=== PATIENT | male | born 1930 | race Caucasian/White ===

== ENCOUNTER 2017-02-02 12:46 | Inpatient (IN) ==
[2017-02-02 17:48] LABS: MANUAL DIFF NEEDED? NO
[2017-02-02 17:54] LABS: ALLEN TEST YES; BE 2.6 mmoll (-3.0-3.0); BLOOD TYPE ARTERIAL; DRAW SITE L RADIAL; METHB 0.4 % (0.0-1.5); O2(CT) 13.5 mL/dL (15.0-23.0); PCO2(98.6) 35 mmHg (35-45); PO2(98.6) 62 mmHg (60-100); SAMPLE BLOOD; SAO2 94.3 % (95.0-100.0); THB 10.3 g/dL (11.5-17.4); pH(98.6) 7.48 (7.35-7.45)
[2017-02-02 17:55] LABS: BASO% 0.3 % (0.0-0.8); EOS# 0.13 X1000 (0.0-0.7); EOS% 1.1 % (0.0-10.0); HEMATOCRIT 31.6 % (42.0-52.0); IMM GRAN# 0.06 X1000 (0.0-0.04); IMM GRAN% 0.5 % (0.0-0.5); LYMPH# 0.91 X1000 (1.2-3.4); LYMPH% 7.8 % (20.5-51.1); MCHC 31.6 g/dL (33-37); MCV 104.3 FL (81-99); MONO# 0.93 X1000 (0.11-0.59); MPV 9.3 FL (7.4-10.4); NEUT% 82.3 % (42.2-75.2); PLT 331 X1000 (130-400); RBC 3.03 XMIL (4.7-6.1)
[2017-02-02 17:55] LABS: MODALITY ROOM AIR
[2017-02-02 18:12] LABS: AGAP 10; ALBUMIN 3.1 g/dL (3.5-5.0); ALKALINE PHOSPHATASE 82 U/L (32-122); BUN 18 mg/dL (8-22); CALCIUM 8.8 mg/dL (8.8-10.2); CHLORIDE 99 mmol/L (98-107); COSMO 270; GOT 17 U/L (10-34); GPT 12 U/L (10-44); POTASSIUM 4.2 mmol/L (3.5-5.1); SODIUM 134 mmol/L (136-145); TCO2 25 mmol/L (25-35); TOTAL BILIRUBIN 0.38 mg/dL (0.20-1.00); TOTAL PROTEIN 5.6 g/dL (6.3-8.3)
[2017-02-02 18:21] LABS: URINE CULTURE NEEDED? NO; URINE MICRO REVIEW NEEDED? NO; URINE SOURCE CLEAN CATCH
--- NOTE | 2017-02-02 18:33 | Diag Imaging Result Doc PS360 ---
EXAM: CHEST-2 VIEWS - 02/02/2017 HISTORY: Pneumonia; new right cavitary lesion TECHNIQUE: AP and lateral chest COMPARISON: Portable exam of 04/29/2016 FINDINGS: Heart size appears borderline enlarged. There is ill-defined infiltrate at right upper lobe. There is mild ill-defined infiltrate at the left base. There are apparent small bilateral pleural effusions which are most conspicuous on the lateral view. There is no pneumothorax identified. There are severe degenerative changes noted at the bilateral shoulders. IMPRESSION: Borderline cardiomegaly. Ill-defined infiltrates at right upper lobe and left base. Small pleural effusions. Electronically signed by Favian Leung 02/02/2017 6:31 PM
[2017-02-02 18:39] LABS: BILIRUBIN URINE NEGATIVE (NEGATIVE); BLOOD URINE NEGATIVE (NEGATIVE); COLOR YELLOW; GLUCOSE URINE NEGATIVE (NEGATIVE); LEUKOCYTES URINE NEGATIVE (NEGATIVE); NITRITE URINE NEGATIVE (NEGATIVE); PROTEIN URINE NEGATIVE (NEGATIVE); SP GRAVITY URINE 1.017; TURBIDITY URINE CLEAR (CLEAR); UR EPITHELIAL CELLS <10 /HPF (<10); URINE BACTERIA NEGATIVE /HPF; URINE RBC <10 /HPF (<10); URINE WBC <10 /HPF (<10); UROBILINOGEN URINE NORMAL (NORMAL)
[2017-02-02] MEDS: ATROVENT NEB INH SCH ×2 (19:35→23:00)
[2017-02-02] MEDS: XOPENEX NEB INH SCH ×2 (19:35→23:00)
[2017-02-02] MEDS: ROCEPHIN 1 GM in NS 50 ML IV SCH (20:04)
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
[2017-02-03] MEDS: XOPENEX NEB INH SCH ×6 (03:19→23:17)
[2017-02-03] MEDS: ATROVENT NEB INH SCH ×6 (03:19→23:17)
--- NOTE | 2017-02-03 05:22 | EKG Report ---
Test Performed on : 02/02/2017 5:28:28 PM Test Reason : evaluate rythm Blood Pressure : / mmHG Vent. Rate : 069 BPM Atrial Rate : 069 BPM P-R Int : 182 ms QRS Dur : 084 ms QT Int : 402 ms P-R-T Axes : 107 -08 034 degrees QTc Int : 430 ms Normal sinus rhythm. Normal ECG When compared with ECG of 28-APR-2016 06:52, No significant change was found Confirmed by Isak Vera MD ([id number]) on 02/03/2017 6:55:34 PM
[2017-02-03 06:53] LABS: MANUAL DIFF NEEDED? NO
[2017-02-03 07:09] LABS: BASO% 0.2 % (0.0-0.8); EOS% 0.8 % (0.0-10.0); HEMATOCRIT 31.1 % (42.0-52.0); IMM GRAN# 0.05 X1000 (0.0-0.04); IMM GRAN% 0.4 % (0.0-0.5); LYMPH# 0.95 X1000 (1.2-3.4); LYMPH% 7.9 % (20.5-51.1); MCH 33.2 PG (27-31); MCHC 32.2 g/dL (33-37); MCV 103.3 FL (81-99); MONO# 1.03 X1000 (0.11-0.59); MONO% 8.6 % (1.7-9.3); MPV 9.2 FL (7.4-10.4); NEUT% 82.1 % (42.2-75.2); PLT 337 X1000 (130-400); RBC 3.01 XMIL (4.7-6.1)
[2017-02-03 07:27] LABS: AGAP 10; ALBUMIN 3.1 g/dL (3.5-5.0); ALKALINE PHOSPHATASE 77 U/L (32-122); BUN 13 mg/dL (8-22); CALCIUM 8.6 mg/dL (8.8-10.2); CHLORIDE 101 mmol/L (98-107); COSMO 272; GOT 19 U/L (10-34); GPT 11 U/L (10-44); POTASSIUM 3.9 mmol/L (3.5-5.1); SODIUM 136 mmol/L (136-145); TCO2 25 mmol/L (25-35); TOTAL BILIRUBIN 0.41 mg/dL (0.20-1.00); TOTAL PROTEIN 5.6 g/dL (6.3-8.3)
[2017-02-03 10:28] LABS: INR 1.09; PROTIME 11.5 Seconds (9.2-11.7); PTT 28.9 Seconds (22.0-36.0)
--- NOTE | 2017-02-03 12:19 | Diag Imaging Result Doc PS360 ---
EXAM: US CHEST W/O MEDIASTINUM(LTD) INDICATION: Bilateral Pleural Effusion TECHNIQUE: COMPARISON: None. FINDINGS: Note that this was originally ordered as a diagnostic thoracentesis. However, prior to the procedure, a scan was performed showing only trace bilateral pleural effusions. The amount of pleural fluid was considered too small to safely access at this time. As such, the procedure was deferred. If more fluid collects in the coming days, the patient can be rescanned and thoracentesis may be attempted if there is adequate fluid. IMPRESSION: Trace bilateral pleural effusions. Please see above discussion. Electronically signed by Kameron Iraheta 02/03/2017 12:17 PM
--- NOTE | 2017-02-03 15:15 | PROGRESS NOTE ---
DATE: 02/03/2017 SUBJECTIVE: Today, Mr. Hernandez referred to be doing a lot better. Denies of any complaints. From the review of his documentation it appears Mr. Hernandez syncopized at the assisted in the bathroom. They found out that his systolic blood pressure was 100 sitting and it dropped to 70 when he stood up, and there was a documentation that this was associated with some tachycardia. OBJECTIVE: Vital Signs: Blood pressure is 138/63, pulse of 74, respirations 18 , temperature is 98.8 degrees. Patient is saturating about 93% on room air. General: Mr. Hernandez is an 86-year- old male. He is in bed, does not seems to be in any remarkable distress. HEENT: Mucosa is pink and a little bit dry, anicteric and acyanotic. Neck: Neck is supple. Chest: Air entry is bilaterally reduced. There is some posterior bilateral lung field crepitations. Cardiovascular: Regular rate and rhythm. I did not appreciate any murmurs or rubs. Abdomen: Soft, nontender. Bowel sounds are present. Extremities: About 2+ pedal edema. MACHINING TECHNICIAN: Patient is awake and alert and oriented. There is no focal neurological deficit. The patient follows commands. STUDIES PERFORMED: EKG done yesterday shows normal sinus rhythm with normal rate. LABORATORY DATA: WBC 12.03, hemoglobin is 10.0, platelet count 337,000. Chemistry is reviewed. Sodium is 136, potassium is 3.9, chloride is 101, bicarbonate is 25. Calcium is 8.6. IMAGING STUDIES: A chest x-ray which was done shows borderline cardiomegaly, ill-defined infiltrate at right lower lobes and left base. There are some small pleural effusions bilaterally described. ASSESSMENT: 1. Syncope attack at the assisted living with systolic blood pressure 100 which dropped to 70 upon standing, with associated tachycardia all consistent with orthostatic hypotension. Patient was hydrated at [facility] and vitals improved. Over here his pressures have been consistently above 128, and his pulse has also being within normal range. We are going to do orthostatic vitals to make sure its resolved. 2. Mild fluid overload. The patient has about 2+ pedal edema. He has some effusions in his lungs. An echocardiogram report that was sent with him shows a normal ejection fraction. The patient does have history of atrial fibrillation so I presume he does have some underlying diastolic dysfunctions. Chest x-ray shows some cardiomegaly with pulmonary edema and pleural effusions so I suspect he does have diastolic dysfunctions. 3. Newly found right lower lobe cavitary lesion on a CT scan from outside facility. Patient is currently on antibiotics and there is a concern that this could be a malignant. There is also a right base lower pleural mass which apparently is getting bigger so there is a plan to do a CT-guided biopsy. 4. Pneumonitis/pneumonia on CT report. The patient is currently on antibiotics. cc: Jason Parmar MD [facility]
[2017-02-03 15:28] LABS: DIFF NEEDED? YES; WBC BF 113 /cumm
--- NOTE | 2017-02-03 15:32 | Diag Imaging Result Doc PS360 ---
EXAM: CHEST-2 VIEWS INDICATION: POST RT THORA TECHNIQUE: 2 views (inspiration/expiration) COMPARISON: 04/13/2017 FINDINGS: There is no evidence of pneumothorax status post thoracentesis. Vague right upper lobe infiltrate is approximately stable given differences in inspiration. No new consolidations are appreciated. Cardiac silhouette is stable. IMPRESSION: No evidence of pneumothorax status post thoracentesis. Electronically signed by Kameron Iraheta 02/03/2017 3:30 PM
[2017-02-03 15:40] LABS: MONOS 60 %; POLYS 40 %
--- NOTE | 2017-02-03 15:51 | Diag Imaging Result Doc PS360 ---
EXAM: THORACENTESIS W/IMAGE GUIDANCE HISTORY: Pleural Effusion TECHNIQUE: Ultrasound guided thoracentesis, right COMMENT: The risks and benefits of the procedure discussed with the patient and he agreed. Following sterile preparation the skin over the right posterior chest and administration 1% lidocaine to the skin and deeper soft tissues the thoracentesis catheter was placed in the right pleural space under ultrasonographic guidance. 300 mL of reddish relatively clear fluid. This was sent in its entirety to the laboratory. There are no immediate complications. IMPRESSION: Successful right thoracentesis as described. Electronically signed by Octavio Garcia 02/03/2017 3:49 PM
[2017-02-03] MEDS: TYLENOL PO PRN (16:10)
[2017-02-03] MEDS: XARELTO PO SCH (19:35)
[2017-02-03] MEDS: ROCEPHIN 1 GM in NS 50 ML IV SCH (21:24)
[2017-02-04] MEDS: XOPENEX NEB INH SCH ×7 (03:25→23:20)
[2017-02-04] MEDS: ATROVENT NEB INH SCH ×6 (03:25→23:20)
[2017-02-04] MEDS: ZITHROMAX 500 MG/NS 500 MG/250 ML IVPB IV SCH (03:46)
[2017-02-04] MEDS: TYLENOL PO PRN ×3 (05:41→20:49)
[2017-02-04] MEDS: XARELTO PO SCH (16:58)
--- NOTE | 2017-02-04 17:34 | PROGRESS NOTE ---
DATE: 02/04/2017 SUBJECTIVE: Mr. Hernandez, an 86-year-old, was admitted on 02/02/2017. He apparently presented with a syncopal attack at assisted living. Systolic blood pressures in the 100s, dropped to 70s associated with tachycardia, orthostatic hypotension. He was hydrated at [facility] and vitals improved, and I think he was sent over here. Continued to check orthostatics. He feels much better. Blood pressures look much better. He had mild fluid overload, 2+ edema, some effusions to his lungs. Echocardiogram was sent, showed normal ejection fraction. He has a history of atrial fibrillation, presume this is some underlying diastolic dysfunction. X-rays suggest cardiomegaly, pulmonary edema, pleural effusions. He has newly found right lower lobe cavitary lesion. CT scan from outside facility there was also right base lower pleural mass which apparently is getting bigger. So I think they did a CT. Plan is to do a CT-guided needle biopsy, and he apparently has had pneumonia or pneumonitis based on the CT scan. He really feels better today. OBJECTIVE: Temperature 98.4 degrees, pulse 69, respirations 14, blood pressure 120/63.Lungs: Clear anterolateral all lung ashley. Cardiovascular exam: Regular rhythm and rate without murmur or S3. Abdomen: Soft. Skin: Warm and dry. Genitourinary: Urine output over 700 mL. LAB: Reviewed from the : White count 12,030, hematocrit 31, platelet count 337,000. Electrolytes unremarkable. Creatinine 0.7. X-RAY: Chest x-ray from the : No evidence of pneumothorax status post thoracentesis. There was a vague right upper lobe infiltrate which appears stable. No new consolidations. ASSESSMENT AND PLAN: 1. Syncopal attack. Blood pressures were low. He has not had any further events. Blood pressures appear better. 2. Mild fluid overload, increased extracellular fluid volume, 2+ pedal edema. Echocardiogram shows normal ejection fraction. I suspect diastolic dysfunction. He also has a history of atrial fibrillation. He had I believe thoracentesis done yesterday. 3. Newly found right lower lobe cavitary lesion on CT scan at outside facility. There is also a right base lower pleural mass which apparently is getting larger so they are going to explore this. 4. Treating him for pneumonia, pneumonitis. 5. Review of his orders: He is on ceftriaxone 1 g daily, azithromycin, Xarelto 20 mg a day. He is getting Xopenex breathing treatments q.4 hours, and Tylenol, ipratropium bromide inhaler and treatments. I do not see any changes. cc: Patel Harris MD
[2017-02-04] MEDS: ROCEPHIN 1 GM in NS 50 ML IV SCH (20:49)
--- NOTE | 2017-02-04 21:18 | CONSULTATION ---
DATE OF CONSULTATION: 02/03/2017 REFERRING PHYSICIAN: Dr. Parmar. REASON FOR REFERRAL: Enlarging lung nodule, known to my service. HISTORY OF PRESENT ILLNESS: Mr. Alex Hernandez is a very pleasant 86-year-old man, well-known to my service secondary to a history of rectal cancer, as well as a history of prostate cancer. He was seen at [facility] after developing syncope and falling. Upon further workup, he was found to have an enlarging pulmonary nodule. He was transported to [facility] for further workup. The Hematology/Oncology service was placed on consult to provide further workup and treatment options. PAST MEDICAL HISTORY: 1. Rectal cancer. 2. Prostate cancer. 3. Iron deficiency anemia. 4. Hypogonadism. 5. Atrial fibrillation. 6. Chronic fatigue. 7. Vitamin D deficiency. PAST SURGICAL HISTORY: 1. Prostatectomy. 2. Cardiac ablation. SOCIAL HISTORY: The patient denies any tobacco, alcohol, or illicit drug use. ALLERGIES: No known drug allergies. MEDICATIONS: As per medication sheet. REVIEW OF SYSTEMS: As per HPI. Otherwise, a 12-point review of systems was negative. PHYSICAL EXAMINATION: General: The patient appears to be in no apparent distress. He is sitting up in his hospital bed, eating his dinner. Vital Signs: Blood pressure 138/63, pulse 74, respirations 18, temperature 98.1 degrees Fahrenheit, O2 saturation 93% on room air. Lungs: Breath sounds clear to auscultation bilaterally. No rhonchi, rales, or wheezing noted. Decreased breath sounds to the bilateral lower lobes. Abdomen: Soft, nontender, nondistended. Positive for bowel sounds. Extremities: No evidence of edema, DVT, or cyanosis. Skin: No rashes or lesions noted. Neurological: No focal neurological deficits. ASSESSMENT: 1. Enlarging medial right lower lobe pulmonary nodule found on CT scan at [facility]. 2. History of rectal cancer. 3. History of prostate cancer. 4. Leukocytosis. 5. History of atrial fibrillation. PLAN: 1. We requested a CT-guided biopsy of the lung nodule. However, Radiology was unable to do so due to the size of the nodule. We will pursue an ultrasound-guided thoracentesis, and send fluid for testing to rule out a malignant process. 2. The patient had no evidence of recurrent disease with his last evaluation. We will check a CEA level. 3. No evidence of recurrent disease. We will check a PSA level while he is here. 4. Leukocytosis. We agree with antibiotic coverage and continuing to monitor counts closely. A chest x-ray did show infiltrates in the right and left lobes. 5. The patient is currently on Xarelto, and it has been continued during his hospital stay. Thank you for this consult, and for allowing us to take part in the care of the patient. Further recommendations will depend upon the patient's hospital course. Dictated by CATHI Gutierrez for Jabier Crowder MD cc: Jabier Crowder MD
[2017-02-05] MEDS: ATROVENT NEB INH SCH ×7 (03:40→23:10)
[2017-02-05] MEDS: XOPENEX NEB INH SCH ×7 (03:41→23:10)
[2017-02-05] MEDS: ZITHROMAX 500 MG/NS 500 MG/250 ML IVPB IV SCH (04:32)
[2017-02-05] MEDS: TYLENOL PO PRN ×2 (05:01→18:32)
--- NOTE | 2017-02-05 16:05 | PROGRESS NOTE ---
DATE: 02/05/2017 SUBJECTIVE: He is feeling much better. He was eating lunch when I saw him. Breathing is much better. We are waiting on results of his pathology. OBJECTIVE: Vital signs: Temperature 98.4 degrees, pulse 74, respirations 15, blood pressure 107/48. Neck: No distended neck veins. Lungs: Clear in all lung ashley. Cardiovascular: Regular rhythm and rate without murmur or S3. Abdomen: Soft. Skin: Is warm and dry. ASSESSMENT AND PLAN: 1. CT-guided biopsy of lung nodule. Radiology was unable to do so due to the size of nodule, so we are going to pursue an ultrasound-guided thoracentesis and send fluid-testing to see if this is a malignant process. So waiting on pathology for that. 2. The patient apparently has had no evidence of recurrent disease. We are going to check a CEA level. Check a PSA. 3. History of rectal cancer. History of prostate cancer. 4. History of atrial fibrillation. REVIEW: This is an 86-year-old with a history of rectal cancer as well as a history of prostate cancer. He was seen in [facility]. Developed syncope and falling. Upon further workup, he was found to have enlarging pulmonary nodule. Transferred to our hospital. To review his past medical history, rectal cancer, prostate cancer, iron deficiency anemia, hypogonadism, atrial fibrillation, chronic fatigue, vitamin D deficiency, status post prostatectomy and cardiac ablation I think for atrial fibrillation. Going over laboratory, I do not see any changes. Looking over his orders, I do not see anything to change at that point either. He is on Xarelto 20 mg a day. Getting ceftriaxone 1 g q.24 hours and azithromycin 500 mg q.24 hours, which I think we can stop. He is on breathing treatments as well. cc: Patel Harris MD
[2017-02-05] MEDS: XARELTO PO SCH (18:25)
[2017-02-05] MEDS: ROCEPHIN 1 GM in NS 50 ML IV SCH (18:25)
[2017-02-06] MEDS: ATROVENT NEB INH SCH ×6 (03:55→23:20)
[2017-02-06] MEDS: XOPENEX NEB INH SCH ×6 (03:55→23:19)
--- NOTE | 2017-02-06 14:10 | PROGRESS NOTE ---
DATE: 02/06/2017 SUBJECTIVE: Mr. Hernandez is feeling much better. He is anxious to go home. Wanted know if we know any further results on his pleuracentesis. They were not able do a needle biopsy but he is eating. I would like to make sure he is able to stand and walk around and so will get physical therapy. OBJECTIVE: Vital signs: Temperature 98.6 degrees, pulse 80, respirations 18, blood pressure 121/62. HEENT: Pupils are equal, round, react to light and accommodation. Oral and nasal mucosa unremarkable. Lungs: Clear. Cardiovascular: Regular rhythm, rate without murmurs or S3. Abdomen: Soft. Skin: Warm and dry. I took off his heel pads and looked like the skin is healing well. Urine output was over 800 mL. ASSESSMENT AND PLAN: 1. CT guided needle biopsy unsuccessful as they did a pleurocentesis. Await those studies. Dr. Crowder been following. 2. No evidence of recurrent disease, he is going to check a CEA level. 3. History of rectal cancer, history of distant history of prostate cancer. 4. History of atrial fibrillation. Rate is controlled. 5. General weakness and deconditioning, seems to be getting a little stronger. He would like to go home. Note he is on the Xarelto 20 mg a day and that is for his atrial fibrillation. Still getting ceftriaxone 1 g q.24 hours and we have no growth in culture 02/03, I think that was pleuritic fluid. Blood cultures from 02/02 were negative, Gram stain on pleural fluid was pretty unremarkable. cc: Patel Harris MD
[2017-02-06] MEDS: XARELTO PO SCH (16:35)
[2017-02-06] MEDS: ROCEPHIN 1 GM in NS 50 ML IV SCH (21:47)
[2017-02-07] MEDS: ATROVENT NEB INH SCH ×6 (03:00→23:21)
[2017-02-07] MEDS: XOPENEX NEB INH SCH ×6 (03:01→23:21)
[2017-02-07] MEDS: TYLENOL PO PRN (10:31)
--- NOTE | 2017-02-07 12:33 | PROGRESS NOTE ---
DATE: 02/07/2017 SUBJECTIVE: Mr. Hernandez was sleeping, easy to arouse. He feels good. He feels a little stronger still, not able to walk very far, not ready to go home. Breathing is comfortable. OBJECTIVE: Vital signs: He remains afebrile. Temp 98.1, pulse 72, respirations 18, blood pressure 124/59. Lungs: Clear in all lung ashley. Cardiovascular: Regular rhythm and rate without murmur or S3. Abdomen: Soft. Skin: Warm and dry. Urine output is 1700 mL. LAB: Reviewed from the . ASSESSMENT AND PLAN: 1. CT-guided needle biopsy unsuccessful. Thoracentesis performed. So far, fluid, I think has not revealed anything. I think we are still waiting on flow cytometry but no evidence of recurrent disease thus far. 2. History of rectal cancer and a distant history of prostate cancer. 3. Atrial fibrillation. Rate is controlled. 4. Deconditioning and weakness. Continue physical therapy. Encourage p.o. intake. I think his eating is better. REVIEW OF HIS ORDERS: I don't see any change, and he is getting physical therapy. cc: Patel Harris MD
[2017-02-07] MEDS: XARELTO PO SCH (16:47)
[2017-02-07] MEDS: ROCEPHIN 1 GM in NS 50 ML IV SCH (19:57)
[2017-02-08] MEDS: ATROVENT NEB INH SCH ×6 (06:21→23:08)
[2017-02-08] MEDS: XOPENEX NEB INH SCH ×6 (06:22→23:08)
--- NOTE | 2017-02-08 15:32 | PROGRESS NOTE ---
DATE: 02/08/2017 SUBJECTIVE: Mr. Hernandez had a pretty good night. Concerned that he is still not able to hold his weight and walk very far, still pretty weak but otherwise breathing comfortably. OBJECTIVE: Vital signs: Remains afebrile, temp 97.9 degrees, pulse 76, respirations 18, blood pressure 127/61. HEENT: Pupils are equal, round, CVP less than 6 cm. Lungs: Clear in all lung ashley. Cardiovascular: Regular rhythm and rate without murmur or S3. Abdomen: Soft, nontender. Skin: Is warm and dry. Urine output was 1700 mL. ASSESSMENT AND PLAN: 1. CT guided needle biopsy was unsuccessful. Thoracentesis performed so far did not reveal any evidence of recurrent cancer. I think we are waiting on flow cytometry. 2. History of rectal cancer, distant history of prostate cancer. 3. Atrial fibrillation. Rate is controlled. Stable. 4. Deconditioning and weakness. Continue physical therapy. DISCHARGE PLANS: See how we do walking, I think he would like to go home but he needs to be able to walk 20-30 feet and be able to support his weight. We will continue physical therapy. I do not see any change in his orders. He is on Xarelto 20 mg daily for his atrial fibrillation and still getting his ceftriaxone 1 g, he got that since the and I believe we can stop that at this point. cc: Patel Harris MD
[2017-02-08] MEDS: XARELTO PO SCH (16:22)
[2017-02-09] MEDS: XOPENEX NEB INH SCH ×6 (02:34→23:55)
[2017-02-09] MEDS: ATROVENT NEB INH SCH ×6 (02:34→23:55)
--- NOTE | 2017-02-09 15:18 | PROGRESS NOTE ---
DATE: 02/09/207 SUBJECT: He was sleeping, easy to arouse. He seems to be in good spirits. He is not hurting, breathing is better. He admits, though, he is very weak and concerned that he is not able to hold his weight up and any steps without a good deal of assistance. OBJECTIVE: Vital signs: Temp 97.8 degrees, pulse 69, respirations 18, blood pressure 111/68. HEENT: Pupils are equal. neck: CVP less than 6 cm. Lungs: Clear in all lung ashley. Cardiovascular: Regular rhythm and rate, without murmur or S3. Abdomen: Soft. skin: Warm and dry. Genitourinary: Urine output 800 mL. LABORATORY: Reviewed from February 03. Chemistries reviewed from February 03. ASSESSMENT AND PLAN: 1. Results of pleurocentesis, so far, did not reveal any sign of recurrent cancer. 2. History of rectal cancer, distant history of prostate cancer. 3. Atrial fibrillation. Rate is controlled. 4. Deconditioning and weakness. Aware. SUMMARY: He had enlargement of the middle right lower lobe pulmonary nodule found on CAT scan at [facility]. Needle biopsy, I think, attempts were not successful, and so they did a pleurocentesis and evaluated the fluid. As far as plans, discussed with Oncology. We need to work on his strength. He may need to go to rehab. He may need to a penitentiary. cc: Patel Harris MD
[2017-02-09] MEDS: XARELTO PO SCH (18:02)
[2017-02-09] MEDS: TYLENOL PO PRN (20:47)
[2017-02-10] MEDS: XOPENEX NEB INH SCH ×6 (03:38→22:40)
[2017-02-10] MEDS: ATROVENT NEB INH SCH ×6 (03:38→22:41)
--- NOTE | 2017-02-10 15:54 | PROGRESS NOTE ---
DATE: 02/10/2017 SUBJECTIVE: Today Mr. Hernandez refers to be doing fine. Denies any acute complaints. The brother was at the bedside at the time of the encounter. OBJECTIVE: Vital signs: Blood pressure is 123/63, pulse of 81, respirations 19 , temperature is 97.8 degrees. General: Mr. Hernandez is an 86-year-old male. He is in bed, not in any distress. HEENT: Mucosa is pink and moist. Anicteric. Acyanotic. Neck: Supple. Chest: Good air entry bilateral. A few bibasilar crepitations. Cardiovascular: Regular rate and rhythm. Abdomen: Soft, nontender. Bowel sounds are present. Extremities: No pedal edema. ROUTER OPERATOR: Patient is awake, alert, oriented. There is no focal neurological deficit. LABORATORY DATA: None for now. ASSESSMENT: 1. Orthostatic hypotension on presentation, resolved. 2. Mild fluid overload, improved. 3. History of atrial fibrillation, currently rate controlled. 4. Newly found right lower lobe cavitary lesion on a CT scan. There was an attempted imaging- guided biopsy, but that was unsuccessful. There was, however, ultrasound- guided pleural effusion draining. We are waiting on the cytology. However, when you analyze the results of the pleural fluid analysis, it is more of a transudate than an exudate. So I suspect this is secondary to a more systemic fluid. For example, a CHF than a local pathology. 5. Pneumonia, completely resolved. Patient has finished therapy with antibiotics. In terms of disposition, Mr. Hernandez is waiting on approval for the swing bed at [facility] for rehabilitation purposes. We are also waiting on the cytology report on the pleural fluid that was done a couple of days ago. cc: Jason Parmar MD [facility]PITALDonald
[2017-02-10] MEDS: XARELTO PO SCH (16:53)
[2017-02-11] MEDS: XOPENEX NEB INH SCH ×4 (03:38→15:26)
[2017-02-11] MEDS: ATROVENT NEB INH SCH ×4 (03:38→15:26)
[2017-02-11 14:06] VITALS: BP 97/59
--- NOTE | 2017-02-11 14:55 | DISCHARGE SUMMARY ---
ADMISSION DATE: 02/02/2017 DISCHARGE DATE: 02/11/2017 CONSULTATIONS: Dr. Crowder with hematology oncology. PERTINENT PROCEDURES: 1. Chest ultrasound showed trace bilateral effusions. 2. Ultrasound-guided thoracentesis removed 300 mL of reddish relatively clear fluid. DISCHARGE DIAGNOSES: 1. Orthostatic hypertension on presentation. 2. Fluid volume, improved. 3. History of atrial fibrillation, currently rate controlled. 4. Newly found right lower lobe cavitary lesion on CT scan. Attempted imaging biopsy that was unsuccessful. They were able to do ultrasound-guided thoracentesis. Culture on the pleural fluid showed no growth. Gram stain showed occasional WBCs and no bacteria was seen. The CEA was 2.7. PSA was 1.47. He was evaluated by Hematology. Fluid was more transudative than exudative and feels that it was more systemic fluid than any type of metastasis. 5. Pneumonia completely resolved. Finish full course of antibiotic. 6. Current syncope secondary to orthostatic hypertension. Resolved after hydration. 7. Right forearm lacerations that were treated with Mepilex. Two laceration areas are closed with scabbing noted. He did have some Steri-Strips that remain in place. Recommend keeping stocking sleeve over the arm when the patient is in short sleeves to protect his arm. 8. Renal insufficiency. Stable. HOSPITAL COURSE: Mr. Hernandez is an 86-year-old gentleman with past medical history of atrial fibrillation, hypertension, depression, and multiple cancers including skin, prostate, and colon. Per the patient's report even lung cancer. He is a retired dental surgeon. He lives alone. He has a 12-hour caregiver. He has somewhat cognitive dysfunction and difficult time giving information. He presented to [facility] on 02/01/2017 secondary to syncopal episode and having multiple lacerations along the right arm and a possible compression fracture was noted. While he was there he had some symptoms of orthostatic hypotension where he went from systolic of 101 sitting down to 71 standing. He received IV fluid hydration. His forearm lacerations are currently bandaged with Steri-Strips. A chest CT was obtained that showed a right lower lobe pulmonary nodule, questionable for possible malignancy. Dr. Irvin contacted Dr. Crowder, who recommended a biopsy. They were unable to do it that week at [facility], so he was transferred to [facility]. He was also found to have leukocytosis. Chest x- ray showed a new right upper lobe infiltrate and a left base infiltrate and atelectasis and bilateral pleural effusions. Initiated on IV antibiotics, resumed on Xarelto for his atrial fibrillation, started on IV fluids for hydration given his recent spell of syncope secondary to orthostatic hypotension. Wound Care was consulted for his right forearm lacerations. They had an unsuccessful biopsy, but they did have a successful ultrasound-guided thoracentesis where they removed 300 mL of reddish relatively clear fluid. The fluid looked more transudative than exudative. His CEA and PSA were both in normal limits with no evidence of recurrent disease. Wound culture on the pleural fluid is no growth. Gram stain shows no bacteria and occasional WBCs. He worked with physical therapy to help regain his strength. They recommended rehab. He has been accepted to [facility]. He is being discharged there today. VITAL SIGNS: Temperature is 98.2 degrees, heart rate 63, respirations 18, blood pressure 108/56, O2 is 97% on room air. DISCHARGE DIET: Healthy heart. DISCHARGE MEDICATIONS: As per Dr. Parmar. Please see MAR. FOLLOWUP: Mr. Hernandez is being discharged to [facility]. He can follow up with his primary care physician, Dr. Polo Irvin, and return to the ED for any worsening of symptoms. DISCHARGE TIME: Thirty minutes. Dictated by CATHI Adams for Jason Parmar MD cc: Jason Parmar MD
[2017-02-11] MEDS: XARELTO PO SCH (16:34)
== END 2017-02-11 16:44 | disposition swing bed (61) ==
LOC: DIRADM 12:46 → SUATTDRO 12:46 → 3N 16:00
PROVIDERS: ATTEND Internal Medicine